=== PATIENT | male | born 1980 | race Hispanic/Latino ===

== ENCOUNTER 2024-05-26 18:48 | Emergency (ER) | payer BC ==
[~2024-05-26] VITALS: Ht 175.3 cm; Wt 83.9 kg
[2024-05-26 19:03] VITALS: PULSE 60; RESP 15; TEMP 97.7
[2024-05-26] MEDS ORDERED: PREDNISONE50 MG PO (20:07)
[2024-05-26] MEDS ORDERED: CYCLOBENZAPRINE10 MG PO (20:09)
[2024-05-26] MEDS ORDERED: NAPROSYN500 MG PO (20:10)
[2024-05-26] MEDS: PREDNISONE 20 MG TAB PO ONE (20:18)
[2024-05-26] MEDS: CYCLOBENZAPRINE HCL 10 MG TAB PO ONE (20:18)
[2024-05-26 20:31] VITALS: BP 121/80; PULSE 60; RESP 16; TEMP 97.7; O2SAT 99
== END 2024-05-26 20:38 | disposition home or self-care (01) ==
LOC: FSED 19:13
DX: M54.16 Radiculopathy, lumbar region (principal); M62.830 Muscle spasm of back
CPT/HCPCS: 99283; J7512